=== PATIENT | female | born 1975 | race African-American/Black ===

== ENCOUNTER → 2019-05-10 | Day surgery (SDC) | payer OTHER ==
[~2019-05-10] MED LIST: FLUO20CA19 PO; HYDROmorphone 2 MG/ML VIAL IV PRN; IV RINGERS,LACTATED 1000ML 1,000 ML IV SCH; LAMO200T6 PO; LIDOCAINE 1% PF 2 ML VIAL. ID PRN; LIDOCAINE 2% PF 5 ML VIAL. ONE; LOXA10CA PO; MONT10TA49 PO; MORPHINE SULFATE 2 MG/ML VIAL. IV PRN; MULT-245 PO; ONDANSETRON PF 4 MG/2 ML VIAL. IV PRN; PROCHLORPERAZINE 10 MG/2 ML VIAL. IV PRN; PROPOFOL 40 ML IV ONE; fentaNYL PF VIAL 100 MCG/2 ML VIAL IV PRN
[2019-05-10 10:07] VITALS: BP 123/61
--- NOTE | 2019-05-10 10:38 | CONS ---
DATE OF CONSULTATION: 05/10/2019 REFERRING PHYSICIAN: Dr. Yahaira Valle. HISTORY OF PRESENT ILLNESS: This is a 43-year-old -[place]amese female with past medical history significant for anxiety, depression, status post cholecystectomy, history of colonic polyps, is seen for interval colonoscopy. Bowel habits have been regular without diarrhea or constipation. There has been no bleeding. There is no family history of colon cancer. She also notes several episodes of syncope including 1 in the Emergency Room in , at which point an electrocardiogram was performed, which was unrevealing for additional pathology. With the episodes, there is no flushing, no diarrhea and no difficulties with breathing. With continued abdominal pain, history of polyps additional evaluation is requested. PAST MEDICAL HISTORY: Anxiety, asthma, history of colonic polyps, IBS, status post cholecystectomy and tubal ligation. ALLERGIES: None. MEDICATIONS: Fluoxetine 20 mg daily, lamotrigine 200 mg daily, loxapine 10 mg daily, montelukast 10 mg at bedtime and multivitamin daily. FAMILY AND SOCIAL HISTORY: Significant with high blood pressure with both parents. REVIEW OF SYSTEMS: Per records. PHYSICAL EXAMINATION: GENERAL: Reveals a well-nourished, well-developed -[place]amese female who is alert, cooperative, in no acute distress. VITAL SIGNS: Temperature 97.2, pulse 93, respirations 20. HEENT: Normocephalic, atraumatic head. Pupils and extraocular muscles are not tested. Sclerae anicteric. NECK: Supple. LUNGS: Clear. CARDIOVASCULAR: Reveals an S1, S2 without S3, S4 or appreciable murmur. ABDOMEN: Reveals a soft abdomen, normal bowel sounds, without appreciable hepatosplenomegaly, diffuse tenderness in right upper quadrant cholecystectomy incision. EXTREMITIES: Reveals no cyanosis, clubbing or edema. IMPRESSION: 1. History of colonic polyps. Surveillance exam is recommended at this time. Risks and benefits were discussed with the patient including risk of hemorrhage and perforation with colonoscopy is willing to proceed. 2. Abdominal pain, status post cholecystectomy with syncopal episodes, etiology to be determined. Recommend upper endoscopy to further assess. If this is unrevealing, a CT scan of the abdomen and pelvis may be pursued. PEYTON LEIGH MD DR: KAREN/lalita JOB#: [id number] / [id number]
--- NOTE | 2019-05-13 14:07 | PATHOLOGY ---
[facility] Accession Number: [id number] . 01 Material submitted: . PART A: esophagus - DISTAL ESOPHAGUS BX. Modifiers: distal PART B: sigmoid colon - SIGMOID COLON POLYP . 01 Clinical history: . Pre-OP DX: Nausea with vomiting, abdominal pain, Hx of polyps Post-OP DX: Rule out Da Silva's . 02 Diagnosis: A. Esophageal biopsies, distal esophagus: - Segments of hyperplastic squamous esophageal mucosa consistent with reflux esophagitis. . B. Colon biopsy, sigmoid colon polyp: - Tubular adenoma. (JPM:iwona; 05/13/2019) QMS 05/13/2019 0913 Local . 02 Comment: Sections of the distal esophageal biopsy reveal segments of tangentially oriented hyperplastic squamous esophageal mucosa. The findings are consistent with reflux esophagitis. There is no evidence of Da Silva's change, dysplasia, or malignancy. . Sections of the sigmoid colon biopsy reveal a tubular adenoma showing no high grade dysplasia or evidence of malignancy. (JPM:iwona; 05/13/2019) . 02 Electronically signed: . Cedric Zaidi MD, Pathologist NPI- [id number] . 01 Gross description: . A. Received in formalin labeled "Nunez, Anietra, distal esophagus BX," are 3 segments of liu soft tissue measuring 1.0 x 0.5 x 0.1 cm in aggregate dimensions and ranging from 0.2 to 0.5 cm in maximum dimension. The specimen is submitted entirely in cassette A1. . B. Received in formalin labeled "Nunez, Anietra, sigmoid colon polyp," is a single segment of liu soft tissue measuring 0.5 cm in maximum dimension. The specimen is entirely submitted in cassette B1. (TSD; 05/10/2019) TOB/TOB 05/13/2019 0910 Local . 02 Pathologist provided ICD-10: D12.5, R10.9 . 02 CPT . 208103, [id number] Specimen Comment: A courtesy copy of this report has been sent to [phone], [phone] Specimen Comment: [id number] Specimen Comment: Report sent to and Performed at: [address] [facility], [place], [place] [id number] MD Carlos Montoya MD Phone: [phone] Performed at: [facility] [address] [place], [place] [id number] MD Cedric Zaidi MD Phone: [phone]
== END ==
LOC: ENDOS 08:06
PROVIDERS: ATTEND Internal Medicine Gastroenterology
DX: R10.9 Unspecified abdominal pain (principal); D12.5 Benign neoplasm of sigmoid colon; K21.0 Gastro-esophageal reflux disease with esophagitis; K64.0 First degree hemorrhoids; K58.9 Irritable bowel syndrome, unspecified; F41.9 Anxiety disorder, unspecified; F32.9 Major depressive disorder, single episode, unspecified; J45.909 Unspecified asthma, uncomplicated; Z90.49 Acquired absence of other specified parts of digestive tract; Z86.010 Personal history of colon polyps; Z98.890 Other specified postprocedural states; Z98.51 Tubal ligation status
CPT/HCPCS: 43239; 45385; 81025; 88305; J2001; J2704; 45384

== ENCOUNTER → 2019-07-12 | Outpatient (CLI) | payer OTHER ==
[2019-05-10 10:07] VITALS: BP 123/61
[~2019-07-12] MED LIST changes: -FLUO20CA19 PO; +FLUO20CA20 PO; -HYDROmorphone 2 MG/ML VIAL IV PRN; +IOHEXOL 240 MG/ML 50ML VIAL. PO ONE; +IOHEXOL 300 MG/ML 100ML VIAL. IV ONE; -IV RINGERS,LACTATED 1000ML 1,000 ML IV SCH; -LIDOCAINE 1% PF 2 ML VIAL. ID PRN; -LIDOCAINE 2% PF 5 ML VIAL. ONE; -MORPHINE SULFATE 2 MG/ML VIAL. IV PRN; -ONDANSETRON PF 4 MG/2 ML VIAL. IV PRN; -PROCHLORPERAZINE 10 MG/2 ML VIAL. IV PRN; -PROPOFOL 40 ML IV ONE; -fentaNYL PF VIAL 100 MCG/2 ML VIAL IV PRN
--- NOTE | 2019-07-12 12:08 | KCIC ---
EXAM: Abdomen and pelvis CT with intravenous contrast. HISTORY: Pain. TECHNIQUE: Computed tomographic images of the abdomen and pelvis were obtained following the administration of intravenous contrast. Multiplanar reformatting was performed. *One or more of the following individualized dose reduction techniques were utilized for this examination: 1. Automated exposure control. 2. Adjustment of the mA and/or kV according to patient size. 3. Use of iterative reconstruction technique. COMPARISON: None. FINDINGS: Evaluation of the lower thorax is unremarkable. No hepatic lesion is seen. The gallbladder is surgically absent. The pancreas, spleen, adrenal glands and kidneys are unremarkable. There is no appendicitis. There is no bowel obstruction. No abnormally thickened or dilated loop of bowel is seen. The uterus is unremarkable. There are small ovarian follicles. There is a peripheral enhancing left ovarian follicle measuring 1.3 cm, likely an involuting follicular cyst. There is a left fallopian tube closure device overlying expected position. There is an additional fallopian tube closure device along the left posterior aspect of the lower uterine segment. The bladder is unremarkable. There is no lymphadenopathy. The aorta is normal in caliber. There is no suspicious osseous lesion. There is slight diastasis of the ventral abdominal wall vasculature at the level of the umbilicus. IMPRESSION: 1. No acute finding. 2. Note is made that there is a fallopian tube closure devices overlying the left posterior aspect of the lower uterine segment. This does not appear to be in the location of the right fallopian tube. There is a left fallopian tube closure device which is likely within expected position. Electronically signed by: Emmy Avitia MD (07/12/2019 12:05 PM) [facility] [place]
== END | disposition home or self-care (01) ==
LOC: KCIC CT 10:30
PROVIDERS: ATTEND Internal Medicine Gastroenterology
DX: N83.8 Other noninflammatory disorders of ovary, fallopian tube and broad ligament (principal); M62.08 Separation of muscle (nontraumatic), other site
CPT/HCPCS: 74177; Q9966; Q9967

== ENCOUNTER → 2019-08-02 | Outpatient (CLI) | payer OTHER ==
[2019-05-10 10:07] VITALS: BP 123/61
[~2019-08-02] MED LIST changes: -IOHEXOL 240 MG/ML 50ML VIAL. PO ONE; -IOHEXOL 300 MG/ML 100ML VIAL. IV ONE
--- NOTE | 2019-08-02 11:55 | KCIC ---
EXAM: Bilateral screening mammogram. HISTORY: 43-year-old female presents for screening mammography. TECHNIQUE: Full-field digital craniocaudal and mediolateral oblique views of both breasts are obtained for evaluation. Computer aided detection with [employer] (powering [employer])D software version 9.3 was applied. COMPARISON: None. This is a baseline mammogram. BREAST PARENCHYMAL DENSITY: Level A - Mostly fat. FINDINGS: There is no suspicious mass, microcalcification or region of architectural distortion. IMPRESSION: BI-RADS Category 2: Benign finding(s). RECOMMENDATION: Annual mammography is recommended. If your mammogram demonstrates that you have dense breast tissue, which could hide abnormalities, and if you have other risk factors for breast cancer that have been identified, you might benefit from supplemental screening tests that may be suggested by your ordering physician. Dense breast tissue, in and of itself, is a relatively common condition. This information is not provided to cause undue concern, but rather to raise your awareness and to promote discussion with your physician regarding the presence of other risk factors, in addition to dense breast tissue. A report of your mammography results will be sent to you and your physician. You should contact your physician if you have any questions or concerns regarding this report. Mammography is a sensitive method for finding small breast cancers, but it does not detect them all and is not a substitute for careful clinical examination. A negative mammogram does not negate a clinically suspicious finding and should not result in delay in biopsying a clinically suspicious abnormality. PQRS compliance statement - Patient information was entered into a reminder system with a target due date for the next mammogram. "Our facility is accredited by the [employer] Mammography Program." Electronically signed by: Emmy Avitia MD (08/02/2019 11:52 AM) [facility]
== END ==
LOC: KCIC MAMMO 11:01
PROVIDERS: ATTEND Family Medicine
DX: Z12.31 Encounter for screening mammogram for malignant neoplasm of breast (principal)
CPT/HCPCS: 77067

== ENCOUNTER → 2020-08-18 | Outpatient (CLI) | payer OTHER ==
[2019-05-10 10:07] VITALS: BP 123/61
--- NOTE | 2020-08-18 13:57 | KCIC ---
EXAM: Bilateral digital screening mammogram with tomosynthesis. HISTORY: 44-year-old female presents for screening mammography. TECHNIQUE: Full-field digital craniocaudal and mediolateral oblique 2D and 3D tomosynthesis images of both breasts are obtained for evaluation. Computer aided detection was applied. COMPARISON: 08/02/2019 BREAST PARENCHYMAL DENSITY: Level A - Mostly fat. FINDINGS: There is no new suspicious mass, microcalcification or region of architectural distortion. There are stable areas of nodularity within both breasts. There are a few benign calcifications. IMPRESSION: BI-RADS Category 2: Benign finding(s). RECOMMENDATION: Annual mammography is recommended. If your mammogram demonstrates that you have dense breast tissue, which could hide abnormalities, and if you have other risk factors for breast cancer that have been identified, you might benefit from s upplemental screening tests that may be suggested by your ordering physician. Dense breast tissue, i n and of itself, is a relatively common condition. This information is not provided to cause undue c oncern, but rather to raise your awareness and to promote discussion with your physician regarding th e presence of other risk factors, in addition to dense breast tissue. A report of your mammography re sults will be sent to you and your physician. You should contact your physician if you have any ques tions or concerns regarding this report. Mammography is a sensitive method for finding small breast cancers, but it does not detect them all a nd is not a substitute for careful clinical examination. A negative mammogram does not negate a clin ically suspicious finding and should not result in delay in biopsying a clinically suspicious abnorma lity. PQRS compliance statement - Patient information was entered into a reminder system with a target due date for the next mammogram. "Our facility is accredited by the [employer] Mammography Program." Electronically signed by: Emmy Avitia MD (08/18/2020 1:54 PM) [facility]
== END ==
LOC: KCIC MAMMO 12:23
PROVIDERS: ATTEND Family Medicine
DX: Z12.31 Encounter for screening mammogram for malignant neoplasm of breast (principal)
CPT/HCPCS: 77063; 77067

== ENCOUNTER → 2021-08-19 | Outpatient (CLI) | payer OTHER ==
[2019-05-10 10:07] VITALS: BP 123/61
[~2021-08-19] MED LIST changes: -FLUO20CA20 PO; +FLUO20CA22 PO
--- NOTE | 2021-08-19 13:09 | KCIC ---
Bilateral digital screening mammograms with 3-D tomosynthesis: Reason for examination: Routine screening. Comparison is made to previous studies dated 08/18/2020 and 08/02/2019. Bilateral mammograms in CC and oblique projections were obtained with 2-D imaging and 3-D tomosynthes is imaging on a Siemens Inspiration unit and reviewed on the workstation. Interpretation was made wit h the benefit of CAD. The skin and nipples show no abnormalities. No abnormal axillary lymph nodes are seen. The breast par enchyma shows scattered fatty and fibroglandular density. (Breast density: Category B.) There are no dominant masses, suspicious calcifications or architectural distortion. Impression: No evidence of malignancy. Recommend routine screening. BI-RAD Category 1: Negative. "Our facility is accredited by the [employer] Mammography Program." This patient's information has been entered into a reminder system for the patient to be notified wit h the results of her examination and a target date for the next mammogram. Electronically signed by: Pham Campos MD (08/19/2021 1:07 PM) [email or web address]
== END ==
LOC: KCIC MAMMO 10:47
PROVIDERS: ATTEND Family Medicine
DX: Z12.31 Encounter for screening mammogram for malignant neoplasm of breast (principal)
CPT/HCPCS: 77063; 77067